=== PATIENT | male | born 1965 | race Native Hawaiian/Other Pacific Islander ===

== ENCOUNTER 2016-06-15 23:03 | Emergency (ER) | payer OTHER ==
[~2016-06-15] VITALS: Ht 180.3 cm; Wt 113.6 kg
[~2016-06-15 23:03] MED LIST: ALLO100T PO; BIDIL PO; CARV25 PO; COLC0.6T69 PO; DIGO125T71 PO; DOCU250C28 PO; FURO40 PO; TRAM50TA4 PO
[2016-06-15] MEDS ORDERED: AMIO200T2 PO (23:21)
[2016-06-15] MEDS ORDERED: HYDR-305 PO (23:21)
[2016-06-15] MEDS ORDERED: ASPIRIN 81 MG CHEWABLE TABLET PO ONE (23:30)
[2016-06-15 23:57] LABS: BASOPHILS % (AUTO) 0.3 % (0.0-2.0); EOSINOPHILS % (AUTO) 4.5 % (1.0-6.0); LYMPHOCYTES # (AUTO) 1.2 K/uL (1.0-4.8); LYMPHOCYTES % (AUTO) 16.3 % (22.0-44.0); MEAN CORPUSCULAR HEMOGLOBIN 33.3 pg (26.0-34.0); MEAN CORPUSCULAR HGB CONC 33.2 G/dL (31.0-37.0); MEAN CORPUSCULAR VOLUME 100 fL (80-100); MONOCYTES # (AUTO) 0.4 K/uL (0.1-1.0); MONOCYTES % (AUTO) 5.2 % (2.0-9.0); NEUTROPHILS # (AUTO) 5.5 K/uL (1.8-7.7); NEUTROPHILS % (AUTO) 73.7 % (40.0-70.0); RED BLOOD CELL COUNT(AUTO) 1.96 MIL/uL (4.50-5.90); RED CELL DISTRIBUTION WIDTH 29.2 % (11.5-14.5); WHITE BLOOD COUNT (AUTO) 7.4 K/uL (4.5-11.0)
[2016-06-16 00:01] LABS: CALCIUM, TOTAL 8.7 mg/dL (8.8-10.5); CREATININE 2.24 mg/dL (0.60-1.30); POTASSIUM 4.4 mmol/L (3.5-5.1)
[2016-06-16 00:04] LABS: INR 1.2 (0.9-1.1); PROTHROMBIN TIME 12.6 SEC (9.4-11.6)
[2016-06-16 00:06] LABS: ALBUMIN 3.3 g/dL (3.4-5.0); BILIRUBIN,TOTAL 1.2 mg/dL (0.1-1.0); TOTAL PROTEIN, SERUM 8.3 g/dL (6.4-8.2)
[2016-06-16 00:07] LABS: HEMOGLOBIN 6.5 g/dL (13.5-17.5)
[2016-06-16 00:08] LABS: HEMATOCRIT 19.6 % (41-53); PLATELET COUNT (AUTO) 7 K/uL (150-450)
[2016-06-16 00:42] LABS: GLUCOSE,POINT OF CARE 90 MG/DL (70-110)
[2016-06-16 05:10] VITALS: BP 101/52
[2016-06-16 05:23] LABS: RBC MORPHOLOGY COMMENT ABNORMAL RBC MORPH
[2016-06-16 05:25] VITALS: BP 99/47
[2016-06-16 05:40] VITALS: BP 102/60
[2016-06-16 06:10] VITALS: BP 105/63
[2016-06-16 06:29] VITALS: BP 97/54
== END 2016-06-16 07:10 | disposition short-term general hospital (02) ==
LOC: EMS 23:05
DX: I49.9 Cardiac arrhythmia, unspecified (principal); D69.6 Thrombocytopenia, unspecified; I11.0 Hypertensive heart disease with heart failure; I50.9 Heart failure, unspecified; E03.9 Hypothyroidism, unspecified; E78.00 Pure hypercholesterolemia, unspecified; J44.9 Chronic obstructive pulmonary disease, unspecified; Z95.1 Presence of aortocoronary bypass graft
CPT/HCPCS: 36415; 71010; 80053; 82948; 82962; 83690; 83880; 84484; 85025; 85610; 86850; 86900; 86901; 86922; 93005; 96360; 99285; P9016

== ENCOUNTER 2017-04-17 13:28 | Emergency (ER) | payer OTHER ==
[~2017-04-17] VITALS: Ht 180.3 cm; Wt 122.7 kg
[~2017-04-17 13:28] MED LIST changes: +AMIO200T2 PO; -BIDIL PO; -CARV25 PO; -COLC0.6T69 PO; -DIGO125T71 PO; -DOCU250C28 PO; +HYDR-305 PO; -TRAM50TA4 PO
[2017-04-17] MEDS ORDERED: METO50 PO (13:57)
[2017-04-17] MEDS ORDERED: FURO20 PO (13:57)
[2017-04-17 15:00] LABS: CALCIUM, TOTAL 7.9 mg/dL (8.8-10.5); POTASSIUM 3.3 mmol/L (3.5-5.1)
[2017-04-17 15:03] LABS: ALBUMIN 2.3 g/dL (3.4-5.0); BILIRUBIN,TOTAL 1.4 mg/dL (0.1-1.0); TOTAL PROTEIN, SERUM 6.2 g/dL (6.4-8.2)
[2017-04-17 15:16] LABS: BASOPHILS % (AUTO) 0.6 % (0.0-2.0); EOSINOPHILS % (AUTO) 10.8 % (1.0-6.0); HEMATOCRIT 22.1 % (41-53); HEMOGLOBIN 7.4 g/dL (13.5-17.5); LYMPHOCYTES # (AUTO) 0.4 K/uL (1.0-4.8); MEAN CORPUSCULAR HEMOGLOBIN 34.6 pg (26.0-34.0); MEAN CORPUSCULAR HGB CONC 33.6 G/dL (31.0-37.0); MEAN CORPUSCULAR VOLUME 103 fL (80-100); MONOCYTES # (AUTO) 0.3 K/uL (0.1-1.0); MONOCYTES % (AUTO) 9.2 % (2.0-9.0); NEUTROPHILS # (AUTO) 2.4 K/uL (1.8-7.7); NEUTROPHILS % (AUTO) 67.4 % (40.0-70.0); RED BLOOD CELL COUNT(AUTO) 2.15 MIL/uL (4.50-5.90); RED CELL DISTRIBUTION WIDTH 28.3 % (11.5-14.5)
[2017-04-17 15:18] LABS: GLUCOSE,POINT OF CARE 103 MG/DL (70-110)
[2017-04-17 15:35] LABS: PLATELET COUNT (AUTO) 6 K/uL (150-450)
[2017-04-17 17:02] LABS: INR 1.2 (0.9-1.1); PROTHROMBIN TIME 12.5 SEC (9.4-11.6)
[2017-04-17 18:00] VITALS: BP 98/59
== END 2017-04-17 18:00 | disposition short-term general hospital (02) ==
LOC: EMS 13:30
DX: N50.89 Other specified disorders of the male genital organs (principal); D69.6 Thrombocytopenia, unspecified; R60.1 Generalized edema; I13.0 Hypertensive heart and chronic kidney disease with heart failure and stage 1 through stage 4 chronic kidney disease, or unspecified chronic kidney disease; I50.9 Heart failure, unspecified; N18.9 Chronic kidney disease, unspecified; I25.10 Atherosclerotic heart disease of native coronary artery without angina pectoris; J44.9 Chronic obstructive pulmonary disease, unspecified; M10.9 Gout, unspecified; E78.00 Pure hypercholesterolemia, unspecified; E03.9 Hypothyroidism, unspecified; Z95.1 Presence of aortocoronary bypass graft; Z95.2 Presence of prosthetic heart valve
CPT/HCPCS: 76870; 82948; 82962; 93005; 99285